=== PATIENT | female | born 1990 ===

== ENCOUNTER 2020-09-11 09:24 | Emergency (ER) | payer OTHER ==
[2020-09-11 10:01] VITALS: BP 106/53
--- NOTE | 2020-09-11 11:09 | Emergency Department Report ---
ED Rash HPI - HPI Chief Complaint: Skin Rash Stated Complaint: RASH/LEAKING YELLOW FLUID Time Seen by Provider: 09/11/20 10:10 Duration: 2 Days Location: Upper Extremities Suspected Cause: Unknown Rash Symptoms: Yes Itching, No Facial Swelling, No Tongue/Oral Swelling, No Breathing Difficulties, No Choking Sensation, No Wheezing/Dyspnea, No Peeling, No Blistering, No Fever, No Lightheaded, No Malaise, No Myalgias Severity: mild Other History: This is a 30-year-old female nontoxic, well nourished in appearance, no acute signs of distress presents to the ED with c/o of redness, itching and honey colored scaly rash to inner left elbow x2 days. That has been itching prior to her symptoms. Patient denies any pus or drainage. Patient denies any fever, chills, nausea, vomiting, chest pain, shortness of breath, headache or stiff neck. Patient denies any allergies or significant past medical history. ED Review of Systems ROS: Stated complaint: RASH/LEAKING YELLOW FLUID Other details as noted in HPI Comment: All other systems reviewed and negative Constitutional: denies: chills, fever Eyes: denies: eye pain, eye discharge, vision change ENT: denies: ear pain, throat pain Respiratory: denies: cough, shortness of breath, wheezing Cardiovascular: denies: chest pain, palpitations Endocrine: no symptoms reported Gastrointestinal: denies: abdominal pain, nausea, diarrhea Genitourinary: denies: urgency, dysuria, discharge Musculoskeletal: denies: back pain, joint swelling, arthralgia Skin: rash. denies: lesions Neurological: denies: headache, weakness, paresthesias Psychiatric: denies: anxiety, depression Hematological/Lymphatic: denies: easy bleeding, easy bruising ED Past Medical Hx - Social History Smoking Status: Never Smoker Substance Use Type: None - Medications Home Medications: Home Medications Medication Instructions Recorded Confirmed Last Taken Type Mupirocin [Bactroban 2%] 1 applic TP BID 5 Days #1 tube 09/11/20 Unknown Rx Sulfamethoxazole/Trimethoprim 1 each PO BID #14 tablet 09/11/20 Unknown Rx [Bactrim DS TAB] Rash Exam - Exam General: Vital signs noted. No distress. Alert and acting appropriately. HEENT: No Periorbital Edema, No Conjuctival Injection, No Chemosis, No Perioral Edema, No Tongue Edema, No Uvular Edema, No Compromised Airway, No Drooling Lungs: Yes Good Air Exchange (Normal Breath Sounds), No Wheezes, No Ronchi, No Stridor, No Cough, No Labored Respirations, No Retractions, No Use of Accessory Muscles, No Other Abnormal Lung Sounds Heart: Yes Regular, No Murmur Skin: Yes Other (Left elbow 4 cm x 5 cm honey/aguillon colored scaly rash with pustules to left inner elbow ), No Urticarial Rash, No Maculopapular Rash, No Morbilliform rash, No Bulla(e), No Excoriations, No Weeping, No Tenderness, No Erythema, No Edema, No Encrustations Other: Positive: Abdomen Normal, Neurologic Normal, Musculoskeletal Normal ED Course Vital Signs 09/11/20 09:58 Temperature 98.1 F Pulse Rate 78 Respiratory 18 Rate Blood Pressure 106/53 O2 Sat by Pulse 100 Oximetry - Reevaluation(s) Reevaluation #1: 09/11/20 11:08 Patient is speaking in full sentences with no signs of distress noted. ED Medical Decision Making - Medical Decision Making This is a 30-year-old male that presents with impetigo. Patient is stable and was examined by me. There is no induration, fluctuance. No signs of abscess formation. Patient be discharged with Bactrim and Bactroban topical. Patient w as referred to Follow-up with a primary care doctor in 3-5 days or if symptoms worsen and continue return to emergency room as soon as possible. At time of discharge, the patient does not seem toxic or ill in appearance. No acute signs of distress noted. Patient agrees to discharge treatment plan of care. No further questions noted by the patient. Critical care attestation.: If time is entered above; I have spent that time in minutes in the direct care of this critically ill patient, excluding procedure time. ED Disposition Clinical Impression: Impetigo Disposition: DC-01 TO HOME OR SELFCARE Is pt being admited?: No Does the pt Need Aspirin: No Condition: Stable Instructions: Impetigo, Adult Additional Instructions: Follow-up with a primary care doctor in 3-5 days or if symptoms worsen and continue return to emergency room as soon as possible. Crusted lesions can be washed gently. Handwashing is important for reducing spread among children, and other preventive measures employed in reducing the spread of staphylococci may also be helpfu Prescriptions: Sulfamethoxazole/Trimethoprim [Bactrim DS TAB] 1 each PO BID #14 tablet Mupirocin [Bactroban 2%] 1 applic TP BID 5 Days #1 tube Referrals: PRIMARY CAREMD [Referring] - 3-5 Days STEVO TOLEDO MD [Staff Physician] - 3-5 Days Forms: Work/School Release Form(ED) Time of Disposition: 11:14
== END 2020-09-11 12:06 | disposition home or self-care (01) ==
LOC: ED 09:24
DX: L01.00 Impetigo, unspecified (principal); Z79.899 Other long term (current) drug therapy
CPT/HCPCS: 99282